=== PATIENT | female | born 1990 | race Caucasian/White ===

== ENCOUNTER 2016-06-04 13:18 | Emergency (ER) ==
[2016-06-04 13:24] VITALS: BP 125/83; TEMP 97.8; BMI 32.9
--- NOTE | 2016-06-04 13:31 | ED.PDOC ---
General ED Provider: Dr. PHILL ROBLES JR Chief Complaint: Abdominal Pain Stated Complaint: onset upper abd pain on friday then has moved to lower abd- pain is sharp--no bladder or bowel problems--occ nausea-no vomiting--last pm had sweats during nite but no fever[ End ]3 DAYS 97.8 77 20 98% 125/83 6/10 DIFFUSE STABBING PAIN pain at left end of cesarian scar- pain for years worse past three days is tender LLQ medial with firm body; ? uterus or mass Time Seen by Physician: 14:07 Mode of Arrival: Walk-In Information Source: Patient Exam Limitations: No limitations Nursing and Triage Documentation Reviewed and Agree: No Review of Systems - Review Of Systems Constitutional: Reports: No symptoms Eyes: Reports: No symptoms Ears, Nose, Mouth, Throat: Reports: No symptoms Respiratory: Reports: No symptoms Cardiac: Reports: No symptoms GI: Reports: Abdominal pain, Nausea : Reports: Pain Musculoskeletal: Reports: No symptoms Skin: Reports: No symptoms Neurological: Reports: No symptoms Endocrine: Reports: No symptoms Hematologic/Lymphatic: Reports: No symptoms All Other Systems: Other Past Medical History - Past Medical History Endocrine: Reports: None Cardiovascular: Reports: None Respiratory: Reports: None Hematological: Reports: None Gastrointestinal: Reports: None Genitourinary: Reports: None Neuro/Psych: Reports: Depression Musculoskeletal: Reports: None Cancer: Reports: None Last Menstrual Period: may 30 Other Pertinent Past Medical History: X 2,, FRACTURED ARM - Surgical History General Surgical History: Reports: (X2), Orthopedic (FRACTURED ARM) - Family History Family History: Reports: Unknown - Social History Smoking Status: Former smoker Hx Substance Use: No Alcohol Screening: Occasionally Physical Exam - Physical Exam Appearance: Well-appearing, Thin Pain Distress: Moderate Eyes: PANTERA ENT: Ears normal, Nose normal, Oropharynx normal Neck: Supple Respiratory: Airway patent, Breath sounds clear, Breath sounds equal, Respirations nonlabored Cardiovascular: RRR, Pulses normal, No rub, No murmur GI/: Soft, Tender, Mass Musculoskeletal: Normal strength, ROM intact, No edema, No calf tenderness Skin: Warm, Dry, Normal color Neurological: Sensation intact, Motor intact, Reflexes intact, Cranial nerves intact, Alert, Oriented Psychiatric: Affect appropriate, Mood appropriate Critical Care Note - Critical Care Note Total Time (mins): 0 Course - Course Hematology/Chemistry: 03/21/17 14:20 06/04/16 14:20 Orders, Labs, Meds: Lab Review 06/04/16 06/04/16 06/04/16 13:50 14:10 14:20 WBC 8.83 RBC 4.49 Hgb 12.9 Hct 38.1 MCV 84.9 MCH 28.7 MCHC 33.9 RDW Coeff of Michael 12.1 Plt Count 261 Immature Gran % (Auto) 0.2 Neut % (Auto) 60.0 Lymph % (Auto) 31.7 [place] % (Auto) 4.8 Eos % (Auto) 2.6 Baso % (Auto) 0.7 Immature Gran # (Auto) 0.0 Neut # 5.3 Lymph # 2.8 [place] # 0.4 Eos # 0.2 Baso # 0.1 Sodium 139 Potassium 4.1 Chloride 107 Carbon Dioxide 25 Anion Gap 11.1 BUN 12 Creatinine 0.81 Estimated GFR (MDRD) 84.00 BUN/Creatinine Ratio 14.81 Glucose 85 Calcium 8.9 Total Bilirubin 0.78 AST 14 L ALT 10 L Alkaline Phosphatase 61 Total Protein 6.4 Albumin 3.8 Globulin 2.6 Albumin/Globulin Ratio 1.46 Amylase 64 Lipase 45 Urine Color Yellow Urine Clarity Slightly Urine pH 7.0 Ur Specific [place] 1.020 Urine Protein Negative Urine Glucose (UA) Negative Urine Ketones Negative Urine Blood 2+ Urine Nitrite Negative Urine Bilirubin Negative Urine Urobilinogen 0.2 Ur Leukocyte Esterase Negative Urine Microscopic RBC 5-10 Urine Microscopic WBC 0-2 Ur Squamous Epith Cells 5-10 Urine Test Negative Orders Category Date Time Status NPO REMINDER: IMAGING ONCE CARE 06/04/16 15:43 Completed AMYLASE Stat LAB 06/04/16 14:20 Completed CBC W/ AUTO DIFF Stat LAB 06/04/16 14:20 Completed COMPREHENSIVE METABOLIC PANEL Stat LAB 06/04/16 14:20 Completed LIPASE Stat LAB 06/04/16 14:20 Completed URINALYSIS C & S IF INDICATED Stat LAB 06/04/16 13:50 Completed URINE Stat LAB 06/04/16 14:10 Completed Morphine Sulfate [Morphine 2 mg/ml Syringe] MEDS 06/04/16 17:14 Discontinued 2 mg IVP ONCE STA Ondansetron HCl/Pf [Zofran 4 mg/2 ml] MEDS 06/04/16 17:14 Discontinued [address]P ONCE [address]A CT ABDOMEN/PELVIS W/WO CONTRAS Stat RADS 06/04/16 15:42 Completed Medications Discontinued Medications Generic Name Dose Route Start Last Admin Trade Name Madina PRN Reason Stop Dose Admin Morphine Sulfate 2 mg 06/04/16 17:14 06/04/16 17:37 Morphine 2 Mg/Ml Syringe IVP 06/04/16 17:15 2 mg ONCE STA Administration Ondansetron HCl 4 mg 06/04/16 17:14 06/04/16 17:38 Zofran 4 Mg/2 Ml IVP 06/04/16 17:15 4 mg ONCE STA Administration Vital Signs: Temp Pulse Resp BP Pulse Ox 06/04/16 13:18 97.8 F 77 20 125/83 98 Departure - Departure Time of Disposition: 18:17 Disposition: HOME SELF-CARE Discharge Problem: Abdominal pain, Soft tissue mass Instructions: Soft Tissue Mass (ED) Condition: Good Pt referred to PMD for follow-up: Yes Additional Instructions: probable hematoma unable to rule out neoplasm or abscess ultram for pain phenergan if any nausea may use ibuprofen and or Tylenol with ultram return if fever over 101.0 if redness or drainage FOLLOW UP PMD ONE WEEK DISCUSS CONSULTATION FOR DRAINAGE OF PAINFUL MASS PHARM TECH MAY BE WILLING DO ADDRESS THIS SITE Prescriptions: Promethazine HCl [Phenergan Tab] 25 mg PO QID PRN #12 tablet PRN Reason: Nausea / Vomiting Tramadol HCl [Ultram] 50 mg PO Q6H PRN #14 tablet PRN Reason: PAIN Allergies/Adverse Reactions: Allergies No Known Allergies Allergy (Verified 06/04/16 13:26) Home Medications: Ambulatory Orders Promethazine HCl [Phenergan Tab] 25 mg PO QID PRN #12 tablet 06/04/16 Tramadol HCl [Ultram] 50 mg PO Q6H PRN #14 tablet 06/04/16
[2016-06-04 14:20] LABS: BILIRUBIN,URINE Negative (NEGATIVE); KETONES,URINE Negative (NEGATIVE); LEUKOCYTE ESTERASE ,URINE Negative (NEGATIVE); NITRITE,URINE Negative (NEGATIVE); PROTEIN,URINE Negative (NEGATIVE); URINE, BLOOD 2+ (NEGATIVE)
[2016-06-04 14:24] LABS: ADD URINE MICROSCOPIC YES
[2016-06-04 14:27] LABS: URINE PREGNANCY INTERNAL QC INTERNAL QC VALID
[2016-06-04 14:33] LABS: BASOPHILS # (AUTO) 0.1 K/uL (0-0.2); BASOPHILS % (AUTO) 0.7 % (0.0-3.0); EOSINOPHILS # (AUTO) 0.2 K/ul (0.0-0.7); EOSINOPHILS % (AUTO) 2.6 % (0.0-7.0); HEMATOCRIT 38.1 % (37.0-47.0); HEMOGLOBIN 12.9 g/dl (12.0-16.0); IMMATURE GRANULOCYTE % (AUTO) 0.2 % (0.0-5.0); LYMPHOCYTES # (AUTO) 2.8 K/uL (0.60-3.4); LYMPHOCYTES % (AUTO) 31.7 (10.0-50.0); MEAN CORPUSCULAR HEMOGLOBIN 28.7 pg (27.0-31.0); MEAN CORPUSCULAR HGB CONC 33.9 (31.8-35.4); MEAN CORPUSCULAR VOLUME 84.9 fl (81.0-99.0); MONOCYTES # (AUTO) 0.4 K/uL (0.4-2.0); MONOCYTES % (AUTO) 4.8 (0-10); NEUTROPHILS # (AUTO) 5.3 K/ul (2.0-6.9); PLATELET COUNT 261 10^3/uL (140-440); RED BLOOD COUNT 4.49 10^6/ul (4.20-5.40); WHITE BLOOD COUNT 8.83 K/ul (4.6-10.2)
[2016-06-04 15:00] LABS: ALBUMIN 3.8 g/dL (3.4-5.0); ALBUMIN/GLOBULIN RATIO 1.46; ANION GAP 11.1; BILIRUBIN,TOTAL 0.78 mg/dL (0.00-1.20); BUN/CREATININE RATIO 14.81; CALCIUM 8.9 mg/dL (8.2-10.2); CREATININE 0.81 mg/dL (0.60-1.30); POTASSIUM 4.1 mmol/L (3.5-5.10); TOTAL PROTEIN 6.4 g/dL (6.4-8.2)
--- NOTE | 2016-06-04 16:43 | CT ---
Examination: Noncontrasted CT examination of the abdomen pelvis with axial, sagittal, and coronal r eformats followed by CT examination of the abdomen pelvis with intravenous contrast administration a xial, sagittal, and coronal reformats. Comparison: None available. Reason for study: Hematuria, pain, left suprapubic mass. FINDINGS: Within the partially imaged lung bases are no pleural effusions, focal consolidations, or pneumothoraces. The heart is not enlarged. The liver, spleen, adrenal glands, gallbladder, and pancreas are grossly unremarkable. No nephrolithiasis, hydronephrosis, or perinephric inflammatory change. There is an only fat contain ing periumbilical hernia. There is no focal small bowel dilatation or transition point. The appendix is unremarkable. The pelv ic structures are unremarkable. There is a 2.8 x 3.1 x 3.2 cm soft tissue density mass in the left rectus abdominus muscle best seen on axial image number 68. No ostial blastic or osteolytic lesions. Impression: 1. Unexpected finding. 3.2 cm soft tissue density mass in the left rectus abdominus muscle. Diffe rential diagnosis includes a rectus hematoma, developing abscess, or soft tissue neoplasm. Recommen d correlation with history of previous trauma or coagulopathy. If clinical concern exists for a sof t tissue lesion, MRI should be performed. 2. No other acute findings are seen on the examination of the abdomen or pelvis. Imaging interpretation was faxed to [facility] ER and imaging at 1638 hours on the day of examination.
[2016-06-04] MEDS ORDERED: MORPHINE 2 MG/ML SYRINGE IVP STA (17:14)
[2016-06-04] MEDS ORDERED: ZOFRAN 4 MG/2 ML IVP STA (17:14)
== END 2016-06-04 18:48 | disposition home or self-care (01) ==
LOC: ED 13:18
DX: R10.84 Generalized abdominal pain (principal); R19.09 Other intra-abdominal and pelvic swelling, mass and lump; M79.9 Soft tissue disorder, unspecified
CPT/HCPCS: 36415; 80053; 81001; 81025; 82150; 83690; 85025; 96374; 96375; 99283

== ENCOUNTER 2018-01-20 10:16 | Emergency (ER) ==
[2018-01-20 10:19] VITALS: BP 130/76; TEMP 98.6; BMI 33.6
--- NOTE | 2018-01-20 10:57 | ED.PDOC ---
General ED Provider: Dr. SAMANTHA WILKERSON Chief Complaint: Ankle Pain/Injury Stated Complaint: Twisted rt ankle-fell off step stool. Pain and swelling lateral ankle Time Seen by Physician: 10:30 Mode of Arrival: Walk-In Information Source: Patient Exam Limitations: Clinical condition (rt ankle very tender to exam.) Nursing and Triage Documentation Reviewed and Agree: Yes Does patient meet sepsis criteria?: No System Inflammatory Response Syndrome: Not Applicable Sepsis Protocol: For patient's 13 years and over: Temp is 96.8 and below OR 101 and greater Pulse >90 BPM Resp >20/minute Acutely Altered Mental Status Are patient's symptoms suggestive of a new infection, such as: -Pneumonia -Skin, Soft Tissue -Endocarditis -UTI -Bone, Joint Infection -Implantable Device -Acute Abdominal Infection -Wound Infection -Meningitis -Blood Stream Catheter Infection -Unknown Musculoskeletal Complaint Exam - Ankle/Foot Complaint/Exam Location of Injury: Reports: Right, Ankle Mechanism of Injury: Reports: Trauma Onset/Duration: 12 hr Symptoms Are: Reports: Still present Onset of Pain: Reports: Immediate Initial Severity: Moderate Current Severity: Moderate Location: Reports: Discrete (lat malleolus) Character: Reports: Sharp, Aching Alleviating: Reports: Rest Aggravating: Reports: Movement, Weight bearing Able to Bear Weight: Yes (limited) Associated Signs and Symptoms: Reports: Swelling, Bruising Gout Risk Factors: Reports: None Lower Extremity Findings: Present: Swelling Tenderness: Present: Lateral malleolus, Midfoot Differential Diagnosis: Sprain, Strain Review of Systems - Review Of Systems Constitutional: Reports: No symptoms Eyes: Reports: No symptoms Ears, Nose, Mouth, Throat: Reports: No symptoms Respiratory: Reports: No symptoms Cardiac: Reports: No symptoms GI: Reports: No symptoms : Reports: No symptoms Musculoskeletal: Reports: No symptoms Skin: Reports: No symptoms Neurological: Reports: No symptoms Endocrine: Reports: No symptoms Hematologic/Lymphatic: Reports: No symptoms All Other Systems: Reviewed and Negative Past Medical History - Past Medical History Previously Healthy: Yes Endocrine: Reports: None Cardiovascular: Reports: None Respiratory: Reports: None Hematological: Reports: None Gastrointestinal: Reports: None Genitourinary: Reports: None Neuro/Psych: Reports: Depression Musculoskeletal: Reports: None Cancer: Reports: None Last Menstrual Period: 12/24/17 Other Pertinent Past Medical History: X 2,, FRACTURED ARM - Surgical History General Surgical History: Reports: (X2), Orthopedic (FRACTURED ARM) - Family History Family History: Reports: Unknown - Social History Smoking Status: Former smoker Hx Substance Use: No Alcohol Screening: Occasionally Physical Exam - Physical Exam Appearance: Well-appearing, No pain distress, Well-nourished Ill-appearing: None Pain Distress: Mild Eyes: PANTERA, EOMI, Conjunctiva clear ENT: Ears normal, Nose normal, Oropharynx normal Respiratory: Airway patent, Breath sounds clear, Breath sounds equal, Respirations nonlabored Cardiovascular: RRR, Pulses normal, No rub, No murmur GI/: Soft, Nontender, No masses, Bowel sounds normal, No Organomegaly Musculoskeletal: Normal strength, ROM intact, No calf tenderness, Limited ROM ( Rt ankle flexion ), Edema (lat rt ankle) Skin: Warm, Dry, Normal color Neurological: Sensation intact, Motor intact, Reflexes intact, Cranial nerves intact, Alert, Oriented Psychiatric: Affect appropriate, Mood appropriate Critical Care Note - Critical Care Note Total Time (mins): 0 Course - Course Orders, Labs, Meds: Orders Category Date Time Status ANKLE, RIGHT MIN 3 VIEWS Stat RADS 01/20/18 10:41 Ordered Vital Signs: Temp Pulse Resp BP Pulse Ox 01/20/18 10:16 98.6 F 102 H 18 130/76 95 Departure - Departure Time of Disposition: 11:20 Disposition: HOME SELF-CARE Discharge Problem: Right ankle sprain Instructions: Ankle Sprain (ED) Condition: Fair Pt referred to PMD for follow-up: Yes (next wk) IPMP verified?: No Additional Instructions: Air cast ankle splint Non weight bearing ambulation Crutches ICE /Elevate Ibuprofen 200 mg take 3 tabs four times daily for pain relief Off work today and tomorrow If feels comfortable with up activity may return tomorrow See PCP in next week Allergies/Adverse Reactions: Allergies No Known Allergies Allergy (Verified 01/20/18 10:19) Home Medications: Ambulatory Orders 1 [No Reported Medications] 01/20/18 Disposition Discussed With: Patient, Family
--- NOTE | 2018-01-20 11:31 | DI ---
EXAM: Right ankle. [place] HISTORY: Twisted ankle COMPARISON: None FINDINGS: Small ossification adjacent to the distal fibula may represent an age indeterminate avulsi on fracture. No fracture of the tibia. Small plantar calcaneal spur. Mild posterior calcaneal enth esopathy. Mild soft tissue swelling about the ankle. IMPERSSION: Small ossification adjacent to the distal fibula may represent an age indeterminate avul adrian fracture.
== END 2018-01-20 11:56 | disposition home or self-care (01) ==
LOC: ED 10:16
DX: S93.401A Sprain of unspecified ligament of right ankle, initial encounter (principal); W17.89XA Other fall from one level to another, initial encounter; R93.7 Abnormal findings on diagnostic imaging of other parts of musculoskeletal system
CPT/HCPCS: 99283

== ENCOUNTER 2018-03-21 12:15 | Emergency (ER) ==
[2018-03-21 12:19] VITALS: BP 127/74; TEMP 98.1; BMI 33.1
--- NOTE | 2018-03-21 13:12 | ED.PDOC ---
General ED Provider: Dr. ALEKSANDAR SENIOR Chief Complaint: Cough Stated Complaint: cough for two days with nasal drainage, Lost her voice also, Sore throat. Time Seen by Physician: 13:12 Mode of Arrival: Walk-In Information Source: Patient Nursing and Triage Documentation Reviewed and Agree: Yes Does patient meet sepsis criteria?: No System Inflammatory Response Syndrome: Not Applicable Sepsis Protocol: For patient's 13 years and over: Temp is 96.8 and below OR 101 and greater Pulse >90 BPM Resp >20/minute Acutely Altered Mental Status Are patient's symptoms suggestive of a new infection, such as: -Pneumonia -Skin, Soft Tissue -Endocarditis -UTI -Bone, Joint Infection -Implantable Device -Acute Abdominal Infection -Wound Infection -Meningitis -Blood Stream Catheter Infection -Unknown Review of Systems - Review Of Systems Constitutional: Reports: No symptoms Eyes: Reports: No symptoms Ears, Nose, Mouth, Throat: Reports: Nose discharge, Throat pain (sinus pain ) Respiratory: Reports: Cough Cardiac: Reports: No symptoms GI: Reports: No symptoms : Reports: No symptoms Musculoskeletal: Reports: No symptoms Skin: Reports: No symptoms Neurological: Reports: No symptoms Endocrine: Reports: No symptoms Hematologic/Lymphatic: Reports: No symptoms All Other Systems: Reviewed and Negative Past Medical History - Past Medical History Previously Healthy: Yes Endocrine: Reports: None Cardiovascular: Reports: None Respiratory: Reports: None Hematological: Reports: None Gastrointestinal: Reports: None Genitourinary: Reports: None Neuro/Psych: Reports: Depression Musculoskeletal: Reports: None Cancer: Reports: None Last Menstrual Period: 02/18/18 Other Pertinent Past Medical History: X 2,, FRACTURED ARM - Surgical History General Surgical History: Reports: (X2), Orthopedic (FRACTURED ARM) - Family History Family History: Reports: Unknown - Social History Smoking Status: Former smoker Hx Substance Use: No Alcohol Screening: Occasionally Physical Exam - Physical Exam Appearance: Ill-appearing, Obese Ill-appearing: Mild Pain Distress: Mild ENT: Rhinorrhea Neck: Supple Respiratory: Airway patent Cardiovascular: RRR, Pulses normal, No rub, No murmur GI/: Soft, Nontender, No masses, Bowel sounds normal, No Organomegaly Musculoskeletal: Normal strength, ROM intact, No edema, No calf tenderness Skin: Warm Neurological: Alert, Oriented Critical Care Note - Critical Care Note Total Time (mins): 0 Course - Course Orders, Labs, Meds: Lab Review 03/21/18 13:20 Influ A Molecular Assay Negative by naat Influ B Molecular Assay Negative by naat Orders Category Date Time Status FLU A/B MOLECULAR Stat LAB 03/21/18 13:20 Completed RAPID STREP SCREEN [MOLECULAR GROUP A STREP] Stat LAB 03/21/18 13:20 Completed Vital Signs: Temp Pulse Resp BP Pulse Ox 03/21/18 12:15 98.1 F 77 18 127/74 98 Departure - Departure Time of Disposition: 14:07 Disposition: HOME SELF-CARE Discharge Problem: Laryngitis Pharyngitis Qualifiers: Pharyngitis/tonsillitis etiology: unspecified etiology Qualified Code(s): J02.9 - Acute pharyngitis, unspecified Instructions: Pharyngitis (ED) Condition: Fair Pt referred to PMD for follow-up: Yes IPMP verified?: No Additional Instructions: Push fluids Take otc Cl[place] or kimberly Take Tessaone pearls for cough Prescriptions: Benzonatate [Tessalon Perles] 100 mg PO TID PRN #25 capsule PRN Reason: Cold Symptons Allergies/Adverse Reactions: Allergies No Known Allergies Allergy (Verified 03/21/18 12:17) Home Medications: Ambulatory Orders Benzonatate [Tessalon Perles] 100 mg PO TID PRN #25 capsule 03/21/18 Disposition Discussed With: Patient, Family
== END 2018-03-21 14:15 | disposition home or self-care (01) ==
LOC: ED 12:15
DX: J04.0 Acute laryngitis (principal); J02.9 Acute pharyngitis, unspecified; R05 Cough
CPT/HCPCS: 87502; 87651; 99283

== ENCOUNTER 2018-05-13 20:55 | Emergency (ER) ==
[2018-05-13 21:08] VITALS: BP 146/94; TEMP 99.4; BMI 33.5
--- NOTE | 2018-05-13 21:13 | ED.PDOC ---
General ED Provider: Dr. SAMANTHA JAIN-ER Chief Complaint: Bite Stated Complaint: i have an infection Time Seen by Physician: 21:11 Mode of Arrival: Walk-In Information Source: Patient Exam Limitations: No limitations Primary Care Provider: MURALI GOLDEN Nursing and Triage Documentation Reviewed and Agree: Yes Does patient meet sepsis criteria?: No System Inflammatory Response Syndrome: Not Applicable Sepsis Protocol: For patient's 13 years and over: Temp is 96.8 and below OR 101 and greater Pulse >90 BPM Resp >20/minute Acutely Altered Mental Status Are patient's symptoms suggestive of a new infection, such as: -Pneumonia -Skin, Soft Tissue -Endocarditis -UTI -Bone, Joint Infection -Implantable Device -Acute Abdominal Infection -Wound Infection -Meningitis -Blood Stream Catheter Infection -Unknown Skin Complaint Exam - Skin/Soft Tissue Complaint/Exam Onset/Duration: 24hrs Symptoms Are: Still present Timing: Constant Initial Severity: Mild Current Severity: Mild Location: right arm Character: Reports: Redness, Swelling, Raised, Painful Aggravating: Reports: Touch Associated Signs and Symptoms: Reports: Tenderness Related History: Reports: Similar episode Related Surgical History: Reports: None Recent Exposure to Others w/Similar Symptoms: No Skin Findings: Present: Erythema Joint Tenderness Present: No Differential Diagnoses: Infection Review of Systems - Review Of Systems Constitutional: Reports: No symptoms Eyes: Reports: No symptoms Ears, Nose, Mouth, Throat: Reports: No symptoms Respiratory: Reports: No symptoms Cardiac: Reports: No symptoms GI: Reports: No symptoms : Reports: No symptoms Musculoskeletal: Reports: No symptoms Skin: Reports: Lumps, Rash Neurological: Reports: No symptoms Endocrine: Reports: No symptoms Hematologic/Lymphatic: Reports: No symptoms All Other Systems: Reviewed and Negative Past Medical History - Past Medical History Previously Healthy: Yes Endocrine: Reports: None Cardiovascular: Reports: None Respiratory: Reports: None Hematological: Reports: None Gastrointestinal: Reports: None Genitourinary: Reports: None Neuro/Psych: Reports: Depression Musculoskeletal: Reports: None Cancer: Reports: None Last Menstrual Period: 04/22/18 Other Pertinent Past Medical History: X 2,, FRACTURED ARM - Surgical History General Surgical History: Reports: (X2), Orthopedic (FRACTURED ARM) - Family History Family History: Reports: Unknown - Social History Smoking Status: Former smoker Hx Substance Use: No Alcohol Screening: Occasionally - Immunizations Tetanus Shot up to Date: No Physical Exam - Physical Exam Appearance: Well-appearing, No pain distress, Well-nourished Eyes: PANTERA, EOMI, Conjunctiva clear ENT: Ears normal, Nose normal, Oropharynx normal Neck: Supple Respiratory: Airway patent, Breath sounds clear, Breath sounds equal, Respirations nonlabored Cardiovascular: RRR, Pulses normal, No rub, No murmur GI/: Soft, Nontender, No masses, Bowel sounds normal, No Organomegaly Musculoskeletal: Normal strength, ROM intact, No edema, No calf tenderness Skin: Warm Neurological: Sensation intact, Motor intact, Reflexes intact, Cranial nerves intact, Alert, Oriented Psychiatric: Affect appropriate, Mood appropriate Critical Care Note - Critical Care Note Total Time (mins): 0 Course - Course Vital Signs: Temp Pulse Resp BP Pulse Ox 05/13/18 20:58 99.4 F 87 20 146/94 H 98 Departure - Departure Time of Disposition: 21:12 Disposition: HOME SELF-CARE Discharge Problem: Cellulitis of arm Qualifiers: Laterality: unspecified laterality Qualified Code(s): L03.119 - Cellulitis of unspecified part of limb Instructions: Cellulitis (ED) Condition: Good Pt referred to PMD for follow-up: Yes IPMP verified?: No Additional Instructions: stay on antbx---keep arm elevated-=--use heating pad---motrin for comfort--- recheck tomorrow with pcp Allergies/Adverse Reactions: Allergies No Known Allergies Allergy (Verified 05/13/18 21:05) Home Medications: Ambulatory Orders Doxycycline Monohydrate 100 mg PO BID 05/13/18 Sulfamethoxazole/Trimethoprim [Bactrim Ds 800/160 mg] 1 tab PO Q12HR 05/13/18 Disposition Discussed With: Patient
== END 2018-05-13 21:18 | disposition home or self-care (01) ==
LOC: ED 20:55
DX: L03.113 Cellulitis of right upper limb (principal)
CPT/HCPCS: 99282